=== PATIENT | male | born 1985 | race Caucasian/White ===

== ENCOUNTER 2021-06-09 14:12 | Emergency (ER) | payer BC ==
[~2021-06-09] VITALS: Ht 188 cm; Wt 109.1 kg
[2021-06-09] MEDS ORDERED: CEPH250T PO (15:57)
[2021-06-09 16:16] VITALS: BP 124/83
== END 2021-06-09 16:40 | disposition home or self-care (01) ==
LOC: ER 14:13
DX: R06.02 Shortness of breath (principal); F17.200 Nicotine dependence, unspecified, uncomplicated
CPT/HCPCS: 93005; 99283